=== PATIENT | male | born 1965 | race Caucasian/White ===

== ENCOUNTER 2022-01-29 09:13 | Day surgery (SDC) | payer OTHER ==
[~2022-01-29] VITALS: Ht 172.7 cm; Wt 78.1 kg
[~2022-01-29 09:13] MED LIST: ATOR10TA69 PO; IBUP-2071 PO; ISON300 PO; MELO-381 PO; NINT150C PO; PRED5TAB2 PO; SODIUM CHLORIDE 0.9% 1,000 ML ONE; SULF500T60 PO; TAMS-13 PO; [UNRECOGNIZED DRUG - CODE] PO
[2022-01-29] MEDS ORDERED: SODIUM CHLORIDE 0.9% 1,000 ML IV ONE (10:00)
[2022-01-29 10:19] LABS: COVID AG,FIA SOURCE NASAL SWAB
[2022-01-29] MEDS ORDERED: DiphenhydrAMINE HCL 50 MG CAPSULE ONE ×2 (10:47→11:16)
[2022-01-29] MEDS ORDERED: DIAZEPAM 5 MG TABLET ONE (10:47)
[2022-01-29] MEDS ORDERED: ASPIRIN 81 MG CHEWABLE TABLET ONE (10:48)
[2022-01-29] MEDS ORDERED: DIAZEPAM 5 MG TABLET PO ONE (12:00)
[2022-01-29] MEDS ORDERED: DiphenhydrAMINE HCL 50 MG CAPSULE PO ONE (12:00)
[2022-01-29] MEDS ORDERED: ASPIRIN 81 MG CHEWABLE TABLET PO ONE (12:00)
[2022-01-29] MEDS ORDERED: SODIUM BICARBONATE 50 MEQ/50 ML VIAL ONE (12:08)
[2022-01-29] MEDS ORDERED: LIDOCAINE/PF 1% 30 ML VIAL ONE (12:08)
[2022-01-29] MEDS ORDERED: IOHEXOL 350 MG/ML 100 ML VIAL ONE (12:09)
[2022-01-29] MEDS ORDERED: HEPARIN SODIUM 1000 UNITS/NS 500 ML ONE (12:09)
[2022-01-29 12:37] VITALS: BP 151/90
[2022-01-29] MEDS ORDERED: MIDAZOLAM HCL 2 MG/2 ML VIAL ONE (12:44)
[2022-01-29] MEDS ORDERED: FentaNYL CITRATE PF 100 MCG/2 ML VIAL ONE (12:44)
[2022-01-29] MEDS ORDERED: FentaNYL CITRATE PF 100 MCG/2 ML VIAL IVP ONE ×3 (13:00→13:15)
[2022-01-29] MEDS ORDERED: IOHEXOL 350 MG/ML 100 ML VIAL IARTER ONE (13:00)
[2022-01-29] MEDS ORDERED: MIDAZOLAM HCL 2 MG/2 ML VIAL IVP ONE ×2 (13:00→13:15)
[2022-01-29] MEDS ORDERED: LIDOCAINE 1% 30 ML/SOD BICARB 8.4% 4 ML SQ ONE (13:00)
[2022-01-29] MEDS ORDERED: HEPARIN SODIUM 1000 UNITS/NS 1,000 ML IARTER ONE (13:00)
[2022-01-29 13:21] VITALS: BP 155/95
== END 2022-01-29 19:35 | disposition home or self-care (01) ==
LOC: CATHLAB 09:13
PROVIDERS: ATTEND Internal Medicine Interventional Cardiology
DX: R94.39 Abnormal result of other cardiovascular function study (principal); R07.89 Other chest pain; I10 Essential (primary) hypertension; M19.90 Unspecified osteoarthritis, unspecified site; Z79.899 Other long term (current) drug therapy; Z98.890 Other specified postprocedural states
CPT/HCPCS: 93458; 87426; 93005; C1760; J3010; J1644; J3490 ×2; J2250; Q9967; J7030; C9803